=== PATIENT | female | born 1980 | race Hispanic/Latino ===

== ENCOUNTER 2020-05-16 10:29 | Outpatient (CLI) | payer BC ==
--- NOTE | 2020-05-16 11:25 | RAD ---
Exam:2 views left tibia fibula HISTORY: Injury. Pain. COMPARISON: None FINDINGS: Fracture, cortical irregularity or periosteal reaction. Benign excrescence involving the pr oximal medial tibia. IMPRESSION: No fracture.
== END 2020-05-16 10:30 | disposition home or self-care (01) ==
LOC: BICRAD 10:29
PROVIDERS: ATTEND Physician Assistant Medical
DX: S89.92XA Unspecified injury of left lower leg, initial encounter (principal)

== ENCOUNTER 2023-11-15 15:50 | Outpatient (CLI) | payer BC | END 2023-11-15 15:51 | disposition home or self-care (01) | LOC: BICMAMMO 15:50 | PROVIDERS: ATTEND Family Medicine | DX: Z12.31 Encounter for screening mammogram for malignant neoplasm of breast (principal) | CPT/HCPCS: 77063; 77067 ==